=== PATIENT | male | born 1975 | race Caucasian/White ===

== ENCOUNTER → 2020-08-22 12:18 | Outpatient (CLI) | payer OTHER, SELFPAY ==
[2020-08-22 13:00] LABS: Add Manual Diff / Slide Review NO; Basophils Absolute Auto 100 /uL (0-100); Basophils Percent Auto 0.8 % (0-2); Eosinophils Absolute Auto 500 /uL (0-450); Hematocrit 22.7 % (41-53); Hemoglobin 7.3 g/dL (13.5-17.5); Lymphocytes Absolute Auto 1100 /uL (1100-4500); Lymphocytes Percent Auto 9.2 % (25-40); Mean Corpuscular HGB Conc 32.2 % (30-36); Mean Corpuscular Hemoglobin 26.2 PG (26-34); Mean Corpuscular Volume 81.2 fL (80-100); Monocytes Absolute Auto 900 /uL (0-900); Monocytes Percent Auto 7.2 % (3-14); Neutrophils Absolute Auto 9400 /uL (1500-7000); Neutrophils Percent Auto 78.8 % (50-75); Platelet Count 273 X10^3/uL (150-400); Red Blood Cell Count 2.79 X10^6/uL (4.5-5.9); Red Cell Distribution Width 16.3 % (11.6-14.8); White Blood Cell Count 11.9 X10^3/uL (4.5-11.0)
[2020-08-22 13:20] LABS: BUN Creatinine Ratio 12.4 (6-22); Blood Urea Nitrogen 24 mg/dL (9-20); Calcium 8.5 mg/dL (8.4-10.2); Carbon Dioxide 26 mmol/L (22-32); Chloride 96 mmol/L (98-107); Creatine Kinase 500 U/L (55-170); Estimated Glomerular Filt Rate 37.4 mL/min (>60); Glucose 161 mg/dL (70-100); HEMOLYSIS < 15 (0-50); Potassium 5.1 mmol/L (3.4-5.1); Sodium 130 mmol/L (137-145)
[2020-08-22 13:33] LABS: C-Reactive Protein Quant 19.8 mg/dL (<1.0)
== END ==
PROVIDERS: PCP Internal Medicine Infectious Disease; Referring Provider Internal Medicine Infectious Disease; Visit Provider Internal Medicine Infectious Disease
DX: R78.81 Bacteremia (principal); M46.28 Osteomyelitis of vertebra, sacral and sacrococcygeal region; B95.62 Methicillin resistant Staphylococcus aureus infection as the cause of diseases classified elsewhere
CPT/HCPCS: 80048; 82550; 85025; 86140

== ENCOUNTER → 2021-05-20 09:21 | Outpatient (CLI) | payer OTHER, MEDICAID, SELFPAY ==
--- NOTE | 2021-05-20 09:25 | DI.US.S_ITS ---
PROCEDURE: US RENAL COMPLETE INDICATIONS: NEUROMUSCULAR DISORDER OF BLADDER TECHNIQUE: Real-time scanning was performed of the kidneys and bladder, with image documentation. COMPARISON: [facility], US, US RENAL COMPLETE, 08/23/2020, 21:01. [facility], US, US ABDOMEN LIMITED, 07/31/2020, 10:33. [facility], CT, CT ABDOMEN PELVIS WITH CONTRAST, 07/30/2020, 18:31. FINDINGS: Kidneys: Kidneys are normal in size. Right kidney measures 14.7 cm long; left kidney measures 14.0 cm long. Right renal cortical thickness is 2.0 cm; left renal cortical thickness is 2.0 cm. Renal cortical echotexture is normal. No hydronephrosis or nephrolithiasis. No suspicious solid mass lesions. Bilateral renal cyst, largest of which is on the left measuring up to 2.0 cm. Bladder: Pre-void bladder volume is 183 mL. Post-void residual is 0 mL. Pre-void images demonstrate no intraluminal masses or stones. On pre-void images, left ureteral jets are noted with color Doppler interrogation. (Of note, ureteral jets may not be detectable in up to 25% of cases due to insufficient differences in specific gravity between ureteral and bladder urine). Miscellaneous: No free pelvic fluid. IMPRESSION: 1. Bilateral renal cysts; otherwise normal appearance of the kidneys. Dictated by: Quan JOYA Interpreted: Tre Nolan MD on 05/20/2021 at 10:42 Transcribed by: PREM on 05/20/2021 at 10:44 Approved by: Miguel Angel Wang M.D. on 05/21/2021 at 13:35
== END ==
PROVIDERS: PCP Internal Medicine Infectious Disease; Referring Provider Specialist; Visit Provider Specialist
DX: N31.9 Neuromuscular dysfunction of bladder, unspecified (principal); N28.1 Cyst of kidney, acquired; G62.9 Polyneuropathy, unspecified; N52.1 Erectile dysfunction due to diseases classified elsewhere; Z87.440 Personal history of urinary (tract) infections
CPT/HCPCS: 76770; 81002; 99215

== ENCOUNTER → 2021-11-19 09:38 | Outpatient (CLI) | payer OTHER, MEDICAID, SELFPAY | PROVIDERS: PCP Internal Medicine Infectious Disease; Visit Provider Specialist | DX: R30.0 Dysuria (principal); N31.9 Neuromuscular dysfunction of bladder, unspecified; G62.9 Polyneuropathy, unspecified; N52.1 Erectile dysfunction due to diseases classified elsewhere; Z87.440 Personal history of urinary (tract) infections | CPT/HCPCS: 81002; 87086; 99215 ==

== ENCOUNTER → 2022-09-11 10:45 | Outpatient (CLI) | payer OTHER, MEDICAID, SELFPAY ==
[2022-09-11 11:07] LABS: Appearance Urine UA SL CLOUDY; Bilirubin Urine UA NEGATIVE (NEGATIVE); Color Urine UA YELLOW; Glucose Urine UA NEGATIVE (Negative); Ketones Urine UA NEGATIVE (NEGATIVE); Leukocyte Esterase Urine UA 2+ (NEGATIVE); Nitrite Urine UA POSITIVE (Negative); Occult Blood Urine UA 1+ (Negative); Protein Urine UA 2+ (Negative); Urobilinogen Urine UA 0.2 E.U./dL (0.2); pH Urine UA 5.5 (4.5-8.0)
[2022-09-11 11:35] LABS: Bacteria Urine Many (>30); Culture Indicated Urine Specimen Cultured; RBC Urine 1-5/HPF (0-5/HPF); WBC Urine 10-30/HPF (0-5/HPF)
== END ==
PROVIDERS: PCP Internal Medicine Infectious Disease; Visit Provider Specialist
DX: N31.9 Neuromuscular dysfunction of bladder, unspecified (principal); R82.90 Unspecified abnormal findings in urine
CPT/HCPCS: 81001; 87086; 99211

== ENCOUNTER → 2022-09-14 14:16 | Outpatient (CLI) | payer OTHER, MEDICAID, SELFPAY ==
[2022-09-15 00:45] LABS: BUN Creatinine Ratio 12.4 (6-22); Blood Urea Nitrogen 14 mg/dL (9-20); Carbon Dioxide 27 mmol/L (22-32); Chloride 105 mmol/L (98-107); Estimated Glomerular Filt Rate > 60 mL/min (>60); Glucose 106 mg/dL (70-100); HEMOLYSIS < 15 (0-50); Potassium 4.8 mmol/L (3.4-5.1); Sodium 142 mmol/L (137-145)
== END ==
PROVIDERS: PCP Internal Medicine Infectious Disease; Referring Provider Specialist; Visit Provider Specialist
DX: N31.9 Neuromuscular dysfunction of bladder, unspecified (principal)
CPT/HCPCS: 36415; 80048

== ENCOUNTER → 2022-09-15 08:03 | Outpatient (CLI) | payer OTHER, MEDICAID, SELFPAY ==
--- NOTE | 2022-09-15 08:05 | DI.CT.S_ITS ---
PROCEDURE: CT IVP A/P W/WO INDICATIONS: Hematuria TECHNIQUE: Optional 5 mm thick noncontrast images acquired from the diaphragm to the symphysis pubis. After the administration of intravenous contrast, 5 mm thick images acquired from the diaphragm to the symphysis pubis after a 10-minute delay. 2 mm thick coronal and sagittal reformats were then performed of the kidneys and ureters. For radiation dose reduction, the following was used: automated exposure control, adjustment of mA and/or kV according to patient size. COMPARISON: [email or web address], US, US RENAL COMPLETE, 08/14/2022, 10:40. [facility], US, US RENAL COMPLETE, 08/23/2020, 21:01. [facility], CT, CT ABDOMEN PELVIS WITH CONTRAST, 06/22/2022, 18:14. [facility], CT, CT KUB, 08/09/2022, 5:23. FINDINGS: Image quality: Excellent. Lung bases: Lung bases are clear. Heart size is normal. Urinary system: Bilateral kidneys are normal in size. Mild to moderate right-sided hydronephrosis is seen. No renal stone is noted. No left-sided renal stone or hydronephrosis. There is significant right-sided hydroureter with distal ureter measures up to 1.9 cm in diameter extending to the level of right UVJ. No calcified ureteral stone is identified. This is unchanged from previous study. After IV contrast infusion, there is normal contrast excretion from bilateral kidneys . No enhancing renal lesion is seen. 2.4 x 2.1 cm simple appearing cyst is seen in midpole of left kidney. Smaller left renal cortical cysts are also seen. There is mild right perinephric fat stranding. There is dilution of excreted IV contrast within dilated right ureter without gross intraluminal filling defect to suggest soft tissue mass. Normal contrast filling of left ureter is seen without intraluminal filling defects. There is diffuse bladder wall thickening, no definite discrete bladder wall mass is noted. No calcified bladder stone is seen. Other solid organs: There is mild hepatic steatosis, no discrete hepatic lesion. Gallbladder is surgically absent. Biliary system is non dilated. Pancreas enhances normally. There is splenomegaly, no discrete splenic lesion.. No adrenal nodules. Peritoneum and bowel: Bowel loops demonstrate normal wall thickness and caliber. No free fluid or air. Mild fecal stasis in the colon is seen. Nodes and vessels: No retroperitoneal or mesenteric adenopathy by size criteria. Subcentimeter lymph nodes are seen in periaortic space and measures up to 8 millimeters in short axis diameter. Aorta and inferior vena cava are normal in size. Abdominal wall: No ventral hernias. Pelvis: No pathologic free pelvic fluid. No inguinal hernias. Subcentimeter lymph nodes are seen in bilateral inguinal region measures up to 9 mm in short axis diameter in left inguinal region. Mildly enlarged prostate gland is seen with mild mass effect on floor of urinary bladder. Bones: No suspicious bony lesions. No vertebral body compression fractures. IMPRESSION: 1. Moderate right-sided hydronephrosis and moderate to severe right-sided hydroureter extending to the level of right UVJ. No obstructing stone is seen. No definite intraluminal filling defects seen within renal pelvis and right ureter to suggest ureteral mass. Finding is concerning for high-grade stenosis at the level of right UVJ. Underlying UVJ mass cannot be excluded. Urological correlation is recommended. 2. No left-sided renal stones or hydronephrosis. Normal appearing left ureter. Multiple left renal cysts as above. 3. Diffuse bladder wall thickening, no definite discrete bladder wall mass. Mildly enlarged prostate gland with mild mass effect on floor of urinary bladder. 4. Hepatic steatosis, no discrete hepatic lesion. Splenomegaly. No discrete splenic lesion. 5. No bowel obstruction or abnormal bowel wall thickening. No free fluid or free air. 6. Subcentimeter lymph nodes seen in periaortic space and bilateral inguinal region. Dictated by: Chad Meléndez M.D. on 09/15/2022 at 13:12 Approved by: Chad Meléndez M.D. on 09/15/2022 at 13:22
== END ==
PROVIDERS: PCP Internal Medicine Infectious Disease; Referring Provider Specialist; Visit Provider Specialist
DX: N31.9 Neuromuscular dysfunction of bladder, unspecified (principal); N13.30 Unspecified hydronephrosis; N28.1 Cyst of kidney, acquired; N40.0 Benign prostatic hyperplasia without lower urinary tract symptoms; K76.0 Fatty (change of) liver, not elsewhere classified; R16.1 Splenomegaly, not elsewhere classified; Z87.440 Personal history of urinary (tract) infections; Z90.49 Acquired absence of other specified parts of digestive tract
CPT/HCPCS: 74178; Q9967